=== PATIENT | male | born 1970 | race Caucasian/White ===

== ENCOUNTER 2018-10-17 11:39 | Emergency (ER) | payer OTHER ==
[2018-10-17 11:45] VITALS: BP 135/82; PULSE 76; TEMP 98; BMI 25.1
--- NOTE | 2018-10-17 12:10 | PDOC ---
History of Present Illness - General Chief Complaint: RX Refill Stated Complaint: BLOOD SUGAR PROBLEMS Time Seen by Provider: 10/17/18 11:55 History Source: Patient Exam Limitations: Clinical Condition - History of Present Illness Initial Comments: 10/17/18 12:07 Patient with history of [id number] diabetes present for diabetes medication refill [place] home. Patient reported has not been taking diabetes medication for the past 3 days. Patient reported last fingerstick this morning was 270. Denies any symptoms patient taking metformin 500 mg twice a day and glimepiride 4 mg daily with patient present with pharmacist slip with him from previous prescription. Timing/Duration: intermittent Past History - Past Medical History Allergies/Adverse Reactions: Allergies Allergy/AdvReac Type Severity Reaction Status Date / Time No Known Allergies Allergy Verified 10/17/18 11:45 Home Medications: Ambulatory Orders Glimepiride 4 mg PO DAILY 30 Days #30 tablet 10/17/18 metFORMIN HCL [Metformin HCl] 500 mg PO BID 30 Days #60 tablet 10/17/18 COPD: No Diabetes: Yes - Suicide/Smoking/Psychosocial Hx Smoking History: Never smoked Review of Systems - Review of Systems Able to Perform ROS?: Yes Is the patient limited Hungarian proficient: No Constitutional: No: Chills, Fever, Malaise HEENTM: No: Symptoms Reported, See HPI, Eye Pain, Blurred Vision, Tearing, Recent change in vision, Double Vision, Cataracts, Ear Pain, Ocular Prothesis, Ear Discharge, Nose Pain, Nose Congestion, Tinnitus, Nose Bleeding, Hearing Loss , Throat Pain, Throat Swelling, Mouth Pain, Dental Problems, Difficulty Swallowing, Mouth Swelling, Other Respiratory: No: Symptoms reported Cardiac (ROS): No: Symptoms Reported ABD/GI: No: Symptoms Reported, Nausea, Vomiting, Abdominal cramping Musculoskeletal: No: Symptoms Reported Integumentary: No: Symptoms Reported Neurological: No: Symptoms reported, Numbness, Paresthesia, Tingling, Weakness Endocrine: No: Symptoms Reported, Excessive Sweating, Intolerance to Cold, Intolerance to Heat, Increased Thirst, Unexplained Weight Gain All Other Systems: Reviewed and Negative *Physical Exam - Vital Signs Last Vital Signs Temp Pulse Resp BP Pulse Ox 98 F 76 18 135/82 99 10/17/18 11:43 10/17/18 11:43 10/17/18 11:43 10/17/18 11:43 10/17/18 11:43 - Physical Exam General Appearance: Yes: Nourished, Appropriately Dressed. No: Apparent Distress HEENT: positive: Normal ENT Inspection, Normal Voice, Symmetrical Neck: positive: Supple Respiratory/Chest: positive: Lungs Clear, Normal Breath Sounds. negative: Respiratory Distress, Accessory Muscle Use Cardiovascular: positive: Regular Rhythm, Regular Rate Gastrointestinal/Abdominal: positive: Normal Bowel Sounds, Flat, Soft. negative : Tender Musculoskeletal: positive: Normal Inspection Extremity: positive: Normal Inspection, Normal Range of Motion Integumentary: positive: Normal Color Neurologic: positive: Fully Oriented, Alert, Normal Mood/Affect, Normal Response , Motor Strength 5/5 Medical Decision Making - Medical Decision Making 10/17/18 12:09 Patient with history of [id number] diabetes present for diabetes medication refill as he is traveling from out of [facility] and left his medication home. Patient reported has not been taking diabetes medication for the past 3 days. Patient reported last fingerstick this morning was 200 fasting. Denies any symptoms patient taking metformin 500 mg twice a day and glimepiride 4 mg daily with patient present with pharmacist slip with him from previous prescription. Exam unremarkable. Patient is symptomatic. 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 Patient advised importance of compliance with medication.Rx for metformin and glimepiride sent. Patient stable for discharge with PCP follow -up *DC/Admit/Observation/Transfer Diagnosis at time of Disposition: Medication refill Type 2 diabetes mellitus Qualifiers: Diabetes mellitus oil heaterman insulin use: without mcc use Diabetes mellitus complication status: without complication Qualified Code(s): E11.9 - Type 2 diabetes mellitus without complications - Discharge Dispostion Disposition: HOME Condition at time of disposition: Stable Decision to Admit order: No - Prescriptions Prescriptions: Glimepiride 4 mg PO DAILY 30 Days #30 tablet metFORMIN HCL [Metformin HCl] 500 mg PO BID 30 Days #60 tablet - Referrals - Patient Instructions Printed Discharge Instructions: Traveling With Diabetes, Type 2 Diabetes Additional Instructions: Take medications as prescribed. Start taking medication right away after picking up from pharmacy. Follow-up with PCP - Post Discharge Activity
== END 2018-10-17 12:14 | disposition home or self-care (01) ==
LOC: JERFT 11:39
DX: Z76.0 Encounter for issue of repeat prescription (principal)
CPT/HCPCS: 99281-25